=== PATIENT | female | born 1975 | race African-American/Black ===

== ENCOUNTER 2017-05-13 11:42 | Emergency (ER) | payer OTHER ==
[~2017-05-13] VITALS: Ht 154.9 cm; Wt 79.8 kg
[~2017-05-13 11:42] MED LIST: ACID REFLUX MED PO; ACID REFLUX PILL; ACID REFLUX PILL PO; ALBUTEROL17 G1; ALBUTEROL17 GM INH; ALLERGY MED PO; ALLERGY MEDICATION PO; AMOXIL500 MG PO; BACTRIM DS TABL1 TA1 PO; BACTRIM DS TABL1 TA2 PO; BENADRYL25 M1 PO; CERTAGEN PO; CHOLESTEROL; CHOLESTEROL MED PO; CITALOPRAM HBR40 MG PO; CLARITIN10 MG PO; DEPRESSION PILL; DIFLUCAN PO; FAMOTIDINE PO; FLAGYL PO; IBUPROFEN800 MG PO; LORTAB 10-5001 EACH PO; LORTAB 10/500 T1 TAB PO; MAGIC MOUTH WASH PO; METROGEL-VAGINA70 GM VG; MIRALAX17 GM; MOBIC PO; MOTRIN100 MG PO; MUCINEX DM1 TAB.SR . PO; NAPROSYN500 MG PO; NEXIUM; NEXIUM PO; NORCO 5/325 TAB1 TAB PO; OMEPRAZOLE20 M2 PO; PERCOCET 5-3251 TAB PO; PHENERGAN25 MG PO; PREDNISONE PO; PREDNISONE50 MG PO; RELAFEN500 MG PO; SINGULAIR PO; ULTRAM PO; VICODIN 5/500 T1 TAB PO; VOLTAREN50 MG PO; VOLTAREN75 MG PO
== END 2017-05-13 12:30 | disposition home or self-care (01) ==
LOC: CFTX 11:42 → CED 11:42 → CFTX 12:30
DX: L72.3 Sebaceous cyst (principal); J44.9 Chronic obstructive pulmonary disease, unspecified; J45.909 Unspecified asthma, uncomplicated; K21.9 Gastro-esophageal reflux disease without esophagitis; Z98.51 Tubal ligation status; F17.210 Nicotine dependence, cigarettes, uncomplicated; Z88.6 Allergy status to analgesic agent; Z88.7 Allergy status to serum and vaccine
CPT/HCPCS: 10060; 87070; 87077; 87186; 87205; 99283

== ENCOUNTER 2017-05-15 16:26 | Emergency (ER) | payer OTHER ==
[~2017-05-15] VITALS: Ht 154.9 cm; Wt 79.8 kg
== END 2017-05-15 17:54 | disposition home or self-care (01) ==
LOC: CFTX 16:26 → CED 16:26 → CFTX 17:54
DX: Z48.817 Encounter for surgical aftercare following surgery on the skin and subcutaneous tissue (principal); F17.200 Nicotine dependence, unspecified, uncomplicated; Z88.6 Allergy status to analgesic agent; Z88.8 Allergy status to other drugs, medicaments and biological substances
CPT/HCPCS: 99282